=== PATIENT | female | born 1955 ===

== ENCOUNTER → 2022-05-24 | Day surgery (SDC) | payer MEDICARE, OTHER ==
[~2022-05-24] MED LIST: Dextrose 5%-0.45% NaCl 1,000 ML IV SCH; Midazolam 1 MG/ML 2 ML SDV IV ONE; Midazolam 1 MG/ML 2 ML SDV ONE; fentaNYL 100 MCG/2 ML SDV IV ONE; fentaNYL 100 MCG/2 ML SDV ONE
== END | disposition home or self-care (01) ==
LOC: DL.ENDO 06:35
PROVIDERS: ATTEND Internal Medicine Gastroenterology
DX: K25.9 Gastric ulcer, unspecified as acute or chronic, without hemorrhage or perforation (principal); D50.9 Iron deficiency anemia, unspecified; E66.09 Other obesity due to excess calories; E78.5 Hyperlipidemia, unspecified; E11.9 Type 2 diabetes mellitus without complications; I10 Essential (primary) hypertension; R31.29 Other microscopic hematuria; Z87.891 Personal history of nicotine dependence; Z88.8 Allergy status to other drugs, medicaments and biological substances; Z88.1 Allergy status to other antibiotic agents; Z91.040 Latex allergy status; Z79.82 Long term (current) use of aspirin; Z68.33 Body mass index [BMI] 33.0-33.9, adult
CPT/HCPCS: 87077; J2250; J3010; J7042

== ENCOUNTER → 2022-06-01 | Day surgery (SDC) | payer MEDICARE, OTHER ==
[~2022-06-01] MED LIST changes: +Sodium Chloride 0.9% 10 ML Syringe FLUSH PRN; +Sodium Chloride 0.9% 10 ML Syringe FLUSH SCH
== END ==
LOC: DL.ENDO 06:20
PROVIDERS: ATTEND Internal Medicine Gastroenterology
DX: K57.30 Diverticulosis of large intestine without perforation or abscess without bleeding (principal); D50.9 Iron deficiency anemia, unspecified; I86.8 Varicose veins of other specified sites; E66.09 Other obesity due to excess calories; E78.5 Hyperlipidemia, unspecified; E11.9 Type 2 diabetes mellitus without complications; I10 Essential (primary) hypertension; R31.29 Other microscopic hematuria; Z87.891 Personal history of nicotine dependence; Z88.1 Allergy status to other antibiotic agents; Z88.8 Allergy status to other drugs, medicaments and biological substances; Z91.040 Latex allergy status; Z68.33 Body mass index [BMI] 33.0-33.9, adult
CPT/HCPCS: J2250; J3010; J7042

== ENCOUNTER 2024-01-13 05:17 | Day surgery (SDC) | payer MEDICARE, OTHER ==
[2024-01-13] MEDS ORDERED: fentaNYL 100 MCG/2 ML SDV IV ONE (05:18)
[2024-01-13] MEDS ORDERED: Midazolam 1 MG/ML 2 ML SDV IV ONE (05:18)
[2024-01-13] MEDS: Dextrose 5%-0.45% NaCl 1,000 ML IV SCH (05:36)
[2024-01-13] MEDS ORDERED: fentaNYL 100 MCG/2 ML SDV ONE (06:05)
[2024-01-13] MEDS ORDERED: Midazolam 1 MG/ML 2 ML SDV ONE (06:05)
[2024-01-13] MEDS: fentaNYL 100 MCG/2 ML SDV IV ONE ×2 (06:35→06:36)
[2024-01-13] MEDS: Midazolam 1 MG/ML 2 ML SDV IV ONE ×2 (06:36→06:37)
== END 2024-01-13 08:16 | disposition home or self-care (01) ==
LOC: DL.ENDO 05:17
PROVIDERS: ATTEND Internal Medicine Gastroenterology
DX: K74.60 Unspecified cirrhosis of liver (principal); I85.10 Secondary esophageal varices without bleeding; K76.6 Portal hypertension; K31.89 Other diseases of stomach and duodenum; I10 Essential (primary) hypertension; E11.9 Type 2 diabetes mellitus without complications; E66.9 Obesity, unspecified
CPT/HCPCS: 87077; 88305; J2250; J3010; J7042

== ENCOUNTER 2024-11-05 05:42 | Day surgery (SDC) | payer MEDICARE, OTHER ==
[2024-11-05] MEDS ORDERED: Midazolam 1 MG/ML 2 ML SDV ONE (06:14)
[2024-11-05] MEDS ORDERED: fentaNYL 100 MCG/2 ML SDV IV ONE (06:15)
[2024-11-05] MEDS ORDERED: fentaNYL 100 MCG/2 ML SDV ONE (06:15)
[2024-11-05] MEDS ORDERED: Midazolam 1 MG/ML 2 ML SDV IV ONE (06:15)
[2024-11-05] MEDS: Sodium Chloride 0.9% 1,000 ML IV SCH (06:34)
[2024-11-05] MEDS: fentaNYL 100 MCG/2 ML SDV IV ONE ×4 (07:05→07:26)
[2024-11-05] MEDS: Midazolam 1 MG/ML 2 ML SDV IV ONE ×6 (07:07→07:20)
== END 2024-11-05 09:15 | disposition home or self-care (01) ==
LOC: DL.ENDO 05:42
PROVIDERS: ATTEND Internal Medicine Gastroenterology
DX: Z12.11 Encounter for screening for malignant neoplasm of colon (principal); K74.60 Unspecified cirrhosis of liver; I86.8 Varicose veins of other specified sites; E11.9 Type 2 diabetes mellitus without complications; I10 Essential (primary) hypertension; E66.9 Obesity, unspecified; Z68.30 Body mass index [BMI] 30.0-30.9, adult
CPT/HCPCS: J2250; J3010; J7030